=== PATIENT | female | born 1970 | race Caucasian/White ===

== ENCOUNTER → 2018-01-27 | Outpatient (CLI) | payer BC ==
[~2018-01-27] MED LIST: AGGRENOX 25 MG-1 CER PO; BLADDER MED PO; FLEXERIL10 MG PO; HYDROCODONE BIT1 T11 PO; KEFLEX500 MG PO; NAPROSYN500 MG PO; PERCOCET 325 MG1 TA5 PO; PREVACID30 M1 PO; PRILOSEC40 MG; PRILOSEC40 MG PO; PRIMROSE OILE500 MG PO; ULTRAM50 MG PO; VITAMIN E100 I1 PO; ZOFRAN ODT4 MG SL
== END ==
LOC: RAD 11:20
DX: M25.511 Pain in right shoulder (principal); M54.10 Radiculopathy, site unspecified

== ENCOUNTER 2023-12-11 15:27 | Emergency (ER) | payer MEDICAID ==
[~2023-12-11] VITALS: Ht 162.5 cm; Wt 53.5 kg
[~2023-12-11 15:27] MED LIST changes: +AUGMENTIN 875875 MG PO; +ZOFRAN4 MG PO
[2023-12-11] MEDS ORDERED: ACETAMINOPHEN 325 MG TAB PO ONE (15:50)
[2023-12-11 16:00] LABS: BASO # 0.1 10*3/uL (0.0-0.1); BASO % 0.9 % (0.0-1.0); EOS % 0.3 % (1.0-4.0); HEMATOCRIT 41.8 % (37.0-47.0); LYMPH # 2.2 10*3/uL (1.3-4.4); MEAN CELL VOLUME 95.9 fl (81.0-99.0); MEAN CORPUSCULAR HGB 31.4 pg (27.0-31.0); MEAN CORPUSCULAR HGB CONC 32.8 g/dl (33.0-37.0); MEAN PLATELET VOLUME 8.5 fl (9.6-12.3); MONO # 0.9 10*3/uL (0.1-1.0); MONO % 8.1 % (3.0-9.0); NEUT # 8.1 10*3/uL (2.3-7.9); NEUT % 71.4 % (47.0-73.0); PLATELET COUNT AUTOMATED 307 10*3/uL (130-400); RED BLOOD COUNT 4.36 10*6/uL (4.10-5.10); RED CELL DISTRI WIDTH 12.1 % (0-14.5); WHITE BLOOD COUNT 11.3 10*3/uL (4.8-10.8)
[2023-12-11 16:25] LABS: BUN 13 mg/dl (9-23); CHLORIDE 106 mmol/L (98-107); POTASSIUM 4.2 mmol/L (3.4-5.1)
[2023-12-11] MEDS ORDERED: CYCLOBENZAPRINE5 M3 PO (17:09)
[2023-12-11 17:12] VITALS: BP 123/68
== END 2023-12-11 17:12 | disposition home or self-care (01) ==
LOC: ED 15:27
PROVIDERS: Nurse Practitioner
DX: S29.011A Strain of muscle and tendon of front wall of thorax, initial encounter (principal); S46.911A Strain of unspecified muscle, fascia and tendon at shoulder and upper arm level, right arm, initial encounter; F32.A Depression, unspecified; Z88.8 Allergy status to other drugs, medicaments and biological substances; Z90.710 Acquired absence of both cervix and uterus; Z98.51 Tubal ligation status; Z98.890 Other specified postprocedural states; X58.XXXA Exposure to other specified factors, initial encounter; Y93.89 Activity, other specified; Y92.89 Other specified places as the place of occurrence of the external cause; Y99.8 Other external cause status

== ENCOUNTER 2024-01-01 09:38 | Emergency (ER) | payer OTHER, MEDICAID ==
[~2024-01-01] VITALS: Ht 162.5 cm; Wt 50.8 kg
[~2024-01-01 09:38] MED LIST changes: +CYCLOBENZAPRINE5 M3 PO
[2024-01-01 09:56] VITALS: BP 145/71
[2024-01-01] MEDS ORDERED: AMITRIPTYLINE25 MG PO (10:04)
[2024-01-01] MEDS ORDERED: TYLENOL325 M1 PO (10:04)
[2024-01-01] MEDS ORDERED: ROPINIROLE HYD0.5 MG PO (10:05)
[2024-01-01] MEDS ORDERED: NEURONTIN300 MG PO (10:05)
[2024-01-01] MEDS ORDERED: CYCLOBENZAPRINE5 M3 PO (10:06)
[2024-01-01] MEDS ORDERED: LORazepam 1 MG TAB PO ONE (10:10)
[2024-01-01 10:31] LABS: BASO # 0.1 10*3/uL (0.0-0.1); BASO % 0.9 % (0.0-1.0); EOS # 0.1 10*3/uL (0.0-0.4); EOS % 0.7 % (1.0-4.0); LYMPH # 2.7 10*3/uL (1.3-4.4); LYMPH % 40.1 % (27.0-41.0); MEAN CORPUSCULAR HGB 31.4 pg (27.0-31.0); MEAN CORPUSCULAR HGB CONC 32.4 g/dl (33.0-37.0); MEAN PLATELET VOLUME 8.4 fl (9.6-12.3); MONO # 0.4 10*3/uL (0.1-1.0); MONO % 5.2 % (3.0-9.0); NEUT # 3.6 10*3/uL (2.3-7.9); NEUT % 52.8 % (47.0-73.0); PLATELET COUNT AUTOMATED 275 10*3/uL (130-400); RED BLOOD COUNT 4.74 10*6/uL (4.10-5.10); RED CELL DISTRI WIDTH 12.6 % (0-14.5); WHITE BLOOD COUNT 6.7 10*3/uL (4.8-10.8)
[2024-01-01 10:59] LABS: BUN 10 mg/dl (9-23); CHLORIDE 107 mmol/L (98-107); POTASSIUM 4.3 mmol/L (3.4-5.1)
[2024-01-01 11:01] LABS: BILIRUBIN Negative (Negative); BLOOD Negative (Negative); CLARITY Clear (Clear); COLOR Yellow (Yellow); GLUCOSE Negative (Negative); KETONE Negative (Negative); LEUKO ESTERASE Negative (Negative); NITRITE Negative (Negative); SPECIFIC GRAVITY <= 1.005 (1.001-1.030); UROBILINOGEN 0.2 E.U./dl (0.0-1.0)
[2024-01-01 11:07] LABS: ETHYL ALCOHOL < 3.0 mg/dl (<3)
[2024-01-01 11:11] LABS: URINE AMPHETAMINES Negative (1000ng/ml); URINE BARBITURATES Negative (200ng/ml); URINE BENZODIAZEPINES Negative (200ng/ml); URINE CANNABINOIDS (THC) Negative (50ng/ml); URINE COCAINE Negative (300ng/ml); URINE METHADONE Negative (300ng/ml); URINE OPIATES Negative (300ng/ml); URINE PHENCYCLIDINE Negative (25ng/ml)
[2024-01-01 11:20] LABS: BACTERIA TRACE; EPITHELIAL CELLS 0-2; RBC 0-2 rbc/hpf (0-2); WBC 0-2 wbc/hpf (0-5)
[2024-01-01] MEDS ORDERED: ATIVAN1 MG PO (12:48)
== END 2024-01-01 12:56 | disposition home or self-care (01) ==
LOC: ED 09:38
PROVIDERS: Emergency Medicine
DX: F32.A Depression, unspecified (principal); F41.9 Anxiety disorder, unspecified; Z88.8 Allergy status to other drugs, medicaments and biological substances; Z90.710 Acquired absence of both cervix and uterus; Z98.51 Tubal ligation status; Z98.890 Other specified postprocedural states

== ENCOUNTER → 2024-04-12 | Outpatient (CLI) | payer OTHER, MEDICAID ==
[~2024-04-12] MED LIST changes: +AMITRIPTYLINE25 MG PO; +ATIVAN1 MG PO; +NEURONTIN300 MG PO; +ROPINIROLE HYD0.5 MG PO; +TYLENOL325 M1 PO
[2024-04-12 17:23] LABS: BASO % 0.8 % (0.0-1.0); EOS % 0.2 % (1.0-4.0); HEMATOCRIT 45.4 % (37.0-47.0); LYMPH # 2.3 10*3/uL (1.3-4.4); LYMPH % 45.9 % (27.0-41.0); MEAN CELL VOLUME 92.5 fl (81.0-99.0); MEAN CORPUSCULAR HGB 31.8 pg (27.0-31.0); MEAN CORPUSCULAR HGB CONC 34.4 g/dl (33.0-37.0); MEAN PLATELET VOLUME 8.7 fl (9.6-12.3); MONO # 0.7 10*3/uL (0.1-1.0); MONO % 13.1 % (3.0-9.0); NEUT % 39.8 % (47.0-73.0); PLATELET COUNT AUTOMATED 171 10*3/uL (130-400); RED BLOOD COUNT 4.91 10*6/uL (4.10-5.10); RED CELL DISTRI WIDTH 13.4 % (0-14.5); WHITE BLOOD COUNT 5.1 10*3/uL (4.8-10.8)
[2024-04-12 17:53] LABS: ALKALINE PHOSPHATASE 70 U/L (46-116); BUN 9 mg/dl (9-23); CHLORIDE 100 mmol/L (98-107); POTASSIUM 3.6 mmol/L (3.4-5.1); SGPT/ALT 32 U/L (5-49); TOTAL PROTEIN 7.1 gm/dL (6.0-8.0)
== END | disposition home or self-care (01) ==
LOC: LAB 16:31
PROVIDERS: ATTEND Nurse Practitioner Family
DX: J02.9 Acute pharyngitis, unspecified (principal); R53.83 Other fatigue; U07.1 COVID-19; Z20.822 Contact with and (suspected) exposure to COVID-19

== ENCOUNTER 2024-07-19 10:59 | Observation (INO) | payer OTHER, MEDICAID ==
[~2024-07-19] VITALS: Ht 162.5 cm; Wt 51.9 kg
[2024-07-19 11:08] VITALS: BP 174/83
[2024-07-19] MEDS ORDERED: IOHEXOL 350 MG/ML 100 ML VIAL IV ONE ×2 (11:15→11:31)
[2024-07-19] MEDS ORDERED: SODIUM CHLORIDE 0.9% 100 ML BAG IV ONE (11:15)
[2024-07-19] MEDS ORDERED: SODIUM CHLORIDE 0.9% 100 ML IV ONE (11:32)
[2024-07-19 11:36] VITALS: BP 182/83
[2024-07-19 11:40] LABS: BILIRUBIN Negative (Negative); BLOOD Negative (Negative); CLARITY Clear (Clear); COLOR Yellow (Yellow); GLUCOSE Negative (Negative); KETONE Negative (Negative); LEUKO ESTERASE Negative (Negative); NITRITE Negative (Negative); UROBILINOGEN 0.2 E.U./dl (0.0-1.0)
[2024-07-19 11:48] LABS: BASO % 0.7 % (0.0-1.0); EOS % 0.5 % (1.0-4.0); HEMATOCRIT 42.1 % (37.0-47.0); MEAN CELL VOLUME 96.8 fl (81.0-99.0); MEAN CORPUSCULAR HGB 32.2 pg (27.0-31.0); MEAN CORPUSCULAR HGB CONC 33.3 g/dl (33.0-37.0); MEAN PLATELET VOLUME 8.8 fl (9.6-12.3); MONO # 0.4 10*3/uL (0.1-1.0); MONO % 6.7 % (3.0-9.0); NEUT # 3.1 10*3/uL (2.3-7.9); NEUT % 51.5 % (47.0-73.0); PLATELET COUNT AUTOMATED 228 10*3/uL (130-400); RED BLOOD COUNT 4.35 10*6/uL (4.10-5.10); RED CELL DISTRI WIDTH 12.7 % (0-14.5)
[2024-07-19 11:56] LABS: URINE AMPHETAMINES Negative (1000ng/ml); URINE BARBITURATES Negative (200ng/ml); URINE BENZODIAZEPINES Negative (200ng/ml); URINE CANNABINOIDS (THC) Negative (50ng/ml); URINE COCAINE Negative (300ng/ml); URINE METHADONE Negative (300ng/ml); URINE OPIATES Negative (300ng/ml); URINE PHENCYCLIDINE Negative (25ng/ml)
[2024-07-19 11:59] LABS: ACT PARTIAL THROMBO TIME 28.1 SECONDS (20.0-32.1)
[2024-07-19 12:08] LABS: EPITHELIAL CELLS 0-2
[2024-07-19 12:14] LABS: ALKALINE PHOSPHATASE 66 U/L (46-116); BUN 9 mg/dl (9-23); CHLORIDE 105 mmol/L (98-107); LIPASE 32 U/L (12-53); POTASSIUM 3.4 mmol/L (3.4-5.1); SGPT/ALT 18 U/L (5-49); TOTAL PROTEIN 6.5 gm/dL (6.0-8.0)
[2024-07-19] MEDS ORDERED: Clopidogrel Hydrogen Sulfate 75 MG TAB PO ONE (12:25)
[2024-07-19] MEDS ORDERED: ASPIRIN, CHEWABLE 81 MG TAB PO ONE (12:25)
[2024-07-19 12:30] VITALS: BP 153/85
[2024-07-19] MEDS ORDERED: MORPHINE Sulfate 2 MG/ML SYR IV PRN (13:40)
[2024-07-19] MEDS ORDERED: ACETAMINOPHEN 650 MG SUPP R PRN (13:40)
[2024-07-19] MEDS ORDERED: Acetaminophen/Hydrocodone 5 MG/325 MG TABLET PO PRN (13:40)
[2024-07-19] MEDS ORDERED: ACETAMINOPHEN 325 MG TAB PO PRN (13:40)
[2024-07-19] MEDS ORDERED: BISACODYL 5 MG TAB PO PRN (13:40)
[2024-07-19] MEDS ORDERED: Ondansetron Hydrochloride 4 MG/2 ML VIAL IV PRN (13:40)
[2024-07-19] MEDS ORDERED: BISACODYL 10 MG SUPP R PRN (13:40)
[2024-07-19] MEDS ORDERED: Magnesium Hydroxide 30 ML UDC PO PRN (13:40)
[2024-07-19 14:15] VITALS: BP 142/79
[2024-07-19] MEDS ORDERED: Nicotine 21 MG PATCH T SCH (15:30)
[2024-07-19 20:00] VITALS: BP 149/71
[2024-07-19] MEDS ORDERED: ATORVASTATIN CALCIUM 80 MG TAB PO SCH (22:00)
[2024-07-20] VITALS: BP 127/75
[2024-07-20 06:32] LABS: BUN 8 mg/dl (9-23); CHLORIDE 109 mmol/L (98-107); POTASSIUM 3.6 mmol/L (3.4-5.1)
[2024-07-20 06:48] LABS: BASO # 0.1 10*3/uL (0.0-0.1); BASO % 0.9 % (0.0-1.0); EOS # 0.1 10*3/uL (0.0-0.4); EOS % 1.5 % (1.0-4.0); HEMATOCRIT 45.2 % (37.0-47.0); MEAN CELL VOLUME 96.6 fl (81.0-99.0); MEAN CORPUSCULAR HGB 31.2 pg (27.0-31.0); MEAN CORPUSCULAR HGB CONC 32.3 g/dl (33.0-37.0); MEAN PLATELET VOLUME 9.2 fl (9.6-12.3); MONO # 0.4 10*3/uL (0.1-1.0); MONO % 7.2 % (3.0-9.0); NEUT # 2.4 10*3/uL (2.3-7.9); NEUT % 44.1 % (47.0-73.0); PLATELET COUNT AUTOMATED 228 10*3/uL (130-400); RED BLOOD COUNT 4.68 10*6/uL (4.10-5.10); RED CELL DISTRI WIDTH 12.8 % (0-14.5); WHITE BLOOD COUNT 5.4 10*3/uL (4.8-10.8)
[2024-07-20 07:43] LABS: VITAMIN D, 25-HYDROXY 18.8 ng/mL (30-100)
[2024-07-20 08:00] VITALS: BP 148/81
[2024-07-20] MEDS ORDERED: Clopidogrel Hydrogen Sulfate 75 MG TAB PO SCH (10:00)
[2024-07-20] MEDS ORDERED: ASPIRIN ENTERIC COATED 81 MG TAB PO SCH (10:00)
[2024-07-20 12:00] VITALS: BP 147/85
[2024-07-20] MEDS ORDERED: CLOPIDOGREL75 MG PO (13:33)
[2024-07-20] MEDS ORDERED: ASPIRIN ADULT L81 M2 PO (13:33)
[2024-07-20] MEDS ORDERED: LISINOPRIL10 M1 PO (13:33)
[2024-07-20] MEDS ORDERED: ATORVASTATIN CA80 M1 PO (13:33)
== END 2024-07-20 17:30 | disposition home or self-care (01) ==
LOC: ED 10:59 → 4E 12:33 → EDHOLD 12:33 → 4E 12:33
PROVIDERS: Emergency Medicine; Student in an Organized Health Care Education/Training Program; ADMIT Family Medicine; ATTEND Family Medicine
DX: G45.9 Transient cerebral ischemic attack, unspecified (principal); I63.9 Cerebral infarction, unspecified; E87.1 Hypo-osmolality and hyponatremia; R51.9 Headache, unspecified; R29.810 Facial weakness; R47.81 Slurred speech; R91.1 Solitary pulmonary nodule; F41.9 Anxiety disorder, unspecified; F43.23 Adjustment disorder with mixed anxiety and depressed mood; Z68.21 Body mass index [BMI] 21.0-21.9, adult; Z79.899 Other long term (current) drug therapy

== ENCOUNTER → 2024-10-10 | Outpatient (CLI) | payer OTHER, MEDICAID ==
[~2024-10-10] MED LIST changes: +ASPIRIN ADULT L81 M2 PO; +ATORVASTATIN CA80 M1 PO; +CLOPIDOGREL75 MG PO; +LISINOPRIL10 M1 PO
[2024-10-10 16:59] LABS: BASO # 0.1 10*3/uL (0.0-0.1); EOS # 0.1 10*3/uL (0.0-0.4); EOS % 1.7 % (1.0-4.0); HEMATOCRIT 38.7 % (37.0-47.0); MEAN CELL VOLUME 96.3 fl (81.0-99.0); MEAN CORPUSCULAR HGB 31.3 pg (27.0-31.0); MEAN CORPUSCULAR HGB CONC 32.6 g/dl (33.0-37.0); MEAN PLATELET VOLUME 8.6 fl (9.6-12.3); MONO # 0.5 10*3/uL (0.1-1.0); MONO % 8.1 % (3.0-9.0); NEUT # 2.6 10*3/uL (2.3-7.9); NEUT % 44.1 % (47.0-73.0); PLATELET COUNT AUTOMATED 237 10*3/uL (130-400); RED BLOOD COUNT 4.02 10*6/uL (4.10-5.10); RED CELL DISTRI WIDTH 13.2 % (0-14.5); WHITE BLOOD COUNT 5.9 10*3/uL (4.8-10.8)
[2024-10-10 17:25] LABS: ALKALINE PHOSPHATASE 75 U/L (46-116); BUN 17 mg/dl (9-23); CHLORIDE 103 mmol/L (98-107); POTASSIUM 3.9 mmol/L (3.4-5.1); SGPT/ALT 21 U/L (5-49); TOTAL PROTEIN 6.6 gm/dL (6.0-8.0)
== END | disposition home or self-care (01) ==
LOC: RESCLI 15:43 → LAB 15:43
PROVIDERS: Student in an Organized Health Care Education/Training Program; ATTEND Student in an Organized Health Care Education/Training Program
DX: R21 Rash and other nonspecific skin eruption (principal)

== ENCOUNTER 2024-10-19 10:34 | Inpatient (IN) | payer OTHER, MEDICAID ==
[~2024-10-19] VITALS: Ht 162.5 cm; Wt 54.2 kg
[2024-10-19 10:51] VITALS: BP 128/70
[2024-10-19 11:30] LABS: BASO # 0.1 10*3/uL (0.0-0.1); BASO % 0.9 % (0.0-1.0); EOS # 0.1 10*3/uL (0.0-0.4); EOS % 1.4 % (1.0-4.0); HEMATOCRIT 42.6 % (37.0-47.0); MEAN CELL VOLUME 96.8 fl (81.0-99.0); MEAN CORPUSCULAR HGB 31.4 pg (27.0-31.0); MEAN CORPUSCULAR HGB CONC 32.4 g/dl (33.0-37.0); MONO # 0.6 10*3/uL (0.1-1.0); MONO % 8.5 % (3.0-9.0); NEUT # 3.1 10*3/uL (2.3-7.9); NEUT % 46.7 % (47.0-73.0); PLATELET COUNT AUTOMATED 211 10*3/uL (130-400); RED CELL DISTRI WIDTH 13.3 % (0-14.5); WHITE BLOOD COUNT 6.6 10*3/uL (4.8-10.8)
[2024-10-19 11:41] LABS: ACT PARTIAL THROMBO TIME 27.1 SECONDS (20.0-32.1)
[2024-10-19 11:52] LABS: ALKALINE PHOSPHATASE 72 U/L (46-116); BUN 13 mg/dl (9-23); CHLORIDE 107 mmol/L (98-107); POTASSIUM 4.5 mmol/L (3.4-5.1); SGPT/ALT 16 U/L (5-49)
[2024-10-19 11:58] LABS: BILIRUBIN Negative (Negative); BLOOD Negative (Negative); CLARITY Clear (Clear); COLOR Yellow (Yellow); GLUCOSE Negative (Negative); KETONE Negative (Negative); LEUKO ESTERASE Negative (Negative); NITRITE Negative (Negative); SPECIFIC GRAVITY <= 1.005 (1.001-1.030); UROBILINOGEN 0.2 E.U./dl (0.0-1.0)
[2024-10-19 11:59] LABS: ETHYL ALCOHOL < 3.0 mg/dl (<3)
[2024-10-19 12:07] LABS: URINE AMPHETAMINES Negative (1000ng/ml); URINE BARBITURATES Negative (200ng/ml); URINE BENZODIAZEPINES Negative (200ng/ml); URINE CANNABINOIDS (THC) Negative (50ng/ml); URINE COCAINE Negative (300ng/ml); URINE METHADONE Negative (300ng/ml); URINE OPIATES Negative (300ng/ml); URINE PHENCYCLIDINE Negative (25ng/ml)
[2024-10-19 12:15] LABS: RBC 0-2 rbc/hpf (0-2); WBC 0-2 wbc/hpf (0-5)
[2024-10-19] MEDS ORDERED: DULOXETINE HCL60 MG PO (14:07)
[2024-10-19] MEDS ORDERED: Ondansetron Hydrochloride 4 MG/2 ML VIAL IV PRN (14:25)
[2024-10-19] MEDS ORDERED: BISACODYL 5 MG TAB PO PRN (14:25)
[2024-10-19] MEDS ORDERED: Acetaminophen/Hydrocodone 5 MG/325 MG TABLET PO PRN (14:25)
[2024-10-19] MEDS ORDERED: Nicotine 21 MG PATCH T SCH (14:57)
[2024-10-19 16:29] VITALS: BP 126/64
[2024-10-19 16:30] VITALS: BP 129/67
[2024-10-19] MEDS ORDERED: ATORVASTATIN CA10 M1 PO (17:24)
[2024-10-19 20:00] VITALS: BP 122/86; BP 126/68
[2024-10-19] MEDS ORDERED: CLOPIDOGREL75 MG PO (22:00)
[2024-10-19] MEDS ORDERED: LISINOPRIL10 M1 PO (22:00)
[2024-10-19] MEDS ORDERED: Amitriptyline Hydrochloride 25 MG TAB PO SCH (22:55)
[2024-10-19] MEDS ORDERED: ATORVASTATIN CALCIUM 10 MG TAB PO SCH (22:55)
[2024-10-19] MEDS ORDERED: Clopidogrel Hydrogen Sulfate 75 MG TAB PO SCH (22:55)
[2024-10-19] MEDS ORDERED: DULoxetine Hydrochloride 60 MG CAP PO SCH (22:55)
[2024-10-20] VITALS: BP 108/51
[2024-10-20 06:26] LABS: BASO # 0.1 10*3/uL (0.0-0.1); BASO % 0.9 % (0.0-1.0); EOS # 0.2 10*3/uL (0.0-0.4); EOS % 2.9 % (1.0-4.0); HEMATOCRIT 45.8 % (37.0-47.0); MEAN CELL VOLUME 98.7 fl (81.0-99.0); MEAN CORPUSCULAR HGB 31.7 pg (27.0-31.0); MEAN CORPUSCULAR HGB CONC 32.1 g/dl (33.0-37.0); MEAN PLATELET VOLUME 9.1 fl (9.6-12.3); MONO # 0.5 10*3/uL (0.1-1.0); MONO % 8.2 % (3.0-9.0); NEUT # 1.7 10*3/uL (2.3-7.9); PLATELET COUNT AUTOMATED 233 10*3/uL (130-400); RED BLOOD COUNT 4.64 10*6/uL (4.10-5.10); RED CELL DISTRI WIDTH 13.4 % (0-14.5); WHITE BLOOD COUNT 5.5 10*3/uL (4.8-10.8)
[2024-10-20 06:35] LABS: ALKALINE PHOSPHATASE 67 U/L (46-116); BUN 12 mg/dl (9-23); CHLORIDE 105 mmol/L (98-107); CHOLESTEROL 196 mg/dL (<200); FREE T4 1.06 ng/dl (0.89-1.76); LDL CHOLESTEROL 108 mg/dL (9-159); POTASSIUM 4.1 mmol/L (3.4-5.1); SGPT/ALT 17 U/L (5-49); TRIGLYCERIDES 100 mg/dl (<150)
[2024-10-20] MEDS ORDERED: ACETAMINOPHEN 325 MG TAB PO PRN (06:35)
[2024-10-20 08:00] VITALS: BP 96/50
[2024-10-20] MEDS ORDERED: ERGOCALCIFEROL 50,000 IU CAP (1.25 MG) PO ONE (08:25)
[2024-10-20] MEDS ORDERED: IBUPROFEN 800 MG TAB PO ONE (09:30)
[2024-10-20] MEDS ORDERED: ASPIRIN, CHEWABLE 81 MG TAB PO SCH (10:00)
[2024-10-20] MEDS ORDERED: Enoxaparin Sodium 40 MG/0.4 ML SYR SC SCH (10:00)
[2024-10-20] MEDS ORDERED: Cholecalciferol 2,000 UNIT TABLET (50 MCG) PO SCH (10:00)
[2024-10-20 12:00] VITALS: BP 131/62
[2024-10-20] MEDS ORDERED: AMOX-CLAV 875-1 EACH PO (14:15)
[2024-10-20] MEDS ORDERED: VITAMIN D350 MCG PO (14:17)
[2024-10-20] MEDS ORDERED: VITAMIN D31250 MCG PO (14:17)
[2024-10-20] MEDS ORDERED: ATORVASTATIN CALCIUM 10 MG TAB PO SCH (18:00)
[2024-10-20] MEDS ORDERED: Clopidogrel Hydrogen Sulfate 75 MG TAB PO SCH (22:00)
[2024-10-20] MEDS ORDERED: DULoxetine Hydrochloride 60 MG CAP PO SCH (22:00)
[2024-10-20] MEDS ORDERED: Amitriptyline Hydrochloride 25 MG TAB PO SCH (22:00)
== END 2024-10-20 16:52 | disposition home or self-care (01) | DRG 93 ==
LOC: ED 10:34 → 4E 13:44 → EDHOLD 13:44 → 4E 13:44
PROVIDERS: Internal Medicine; Registered Nurse; ADMIT Family Medicine; ATTEND Family Medicine
DX: R29.810 Facial weakness (principal); R20.0 Anesthesia of skin; E78.5 Hyperlipidemia, unspecified; F17.210 Nicotine dependence, cigarettes, uncomplicated; F43.23 Adjustment disorder with mixed anxiety and depressed mood; R29.701 NIHSS score 1; Z88.8 Allergy status to other drugs, medicaments and biological substances; Z91.09 Other allergy status, other than to drugs and biological substances; Z79.899 Other long term (current) drug therapy; Z79.01 Long term (current) use of anticoagulants; Z79.2 Long term (current) use of antibiotics; Z90.49 Acquired absence of other specified parts of digestive tract; Z90.711 Acquired absence of uterus with remaining cervical stump; Z81.8 Family history of other mental and behavioral disorders; Z86.73 Personal history of transient ischemic attack (TIA), and cerebral infarction without residual deficits

== ENCOUNTER 2025-07-06 12:25 | Emergency (ER) | payer OTHER ==
[~2025-07-06] VITALS: Wt 59.0 kg
[~2025-07-06 12:25] MED LIST changes: +AMOX-CLAV 875-1 EACH PO; +ATORVASTATIN CA10 M1 PO; +DULOXETINE HCL60 MG PO; +ESCITALOPRAM OX10 MG PO; +Fioricet 325 MG1 TAB PO; +RIZATRIPTAN10 M1 PO; +VITAMIN D31250 MCG PO; +VITAMIN D350 MCG PO
[2025-07-06 12:47] VITALS: BP 140/72
[2025-07-06] MEDS ORDERED: diphenhydrAMINE hydrochloride 50 MG/ML VIAL IV ONE (13:35)
[2025-07-06] MEDS ORDERED: SODIUM CHLORIDE 0.9% 1,000 ML IV ONE (13:35)
[2025-07-06 13:49] LABS: BASO # 0.1 10*3/uL (0.0-0.1); BASO % 1.3 % (0.0-1.0); EOS # 0.1 10*3/uL (0.0-0.4); EOS % 0.8 % (1.0-4.0); MEAN CELL VOLUME 94.8 fl (81.0-99.0); MEAN CORPUSCULAR HGB 32.2 pg (27.0-31.0); MEAN PLATELET VOLUME 8.7 fl (9.6-12.3); MONO # 0.4 10*3/uL (0.1-1.0); MONO % 7.1 % (3.0-9.0); NEUT # 2.2 10*3/uL (2.3-7.9); NEUT % 37.4 % (47.0-73.0); NUCLEATED RED BLOOD CELL 0.0 % (0.0-0.0); NUCLEATED RED BLOOD CELL 0.0 10*3/uL (0.0-0.0); PLATELET COUNT AUTOMATED 233 10*3/uL (130-400); RED CELL DISTRI WIDTH 13.0 % (0-14.5)
[2025-07-06 14:08] LABS: BUN 11 mg/dl (9-23)
== END 2025-07-06 17:00 | disposition home or self-care (01) ==
LOC: ED 12:25
PROVIDERS: Student in an Organized Health Care Education/Training Program
DX: G43.909 Migraine, unspecified, not intractable, without status migrainosus (principal); F32.A Depression, unspecified; F41.9 Anxiety disorder, unspecified; F17.200 Nicotine dependence, unspecified, uncomplicated; Z90.710 Acquired absence of both cervix and uterus; Z90.49 Acquired absence of other specified parts of digestive tract; Z98.890 Other specified postprocedural states; Z88.8 Allergy status to other drugs, medicaments and biological substances